=== PATIENT | female | born 1950 | race Caucasian/White ===

== ENCOUNTER 2025-05-14 09:35 | Emergency (ER) | payer MEDICARE, OTHER, SELFPAY ==
[2025-05-14 09:36] VITALS: BMI 20.1
[2025-05-14 09:41] VITALS: BP 128/63
[2025-05-14 10:00] VITALS: BP 141/66
[2025-05-14 11:02] LABS: Hematocrit 36.4 % (37.0-47.0); Hemoglobin 12.0 g/dL (12.0-16.0); Mean Corp Hgb Conc. 33.0 g/dL (33.0-37.0); Mean Corpuscular Volume 87.9 fL (81.0-99.0); Nucleated Red Blood Cells % 0 %; Platelet Count 219 10^3/uL (130-400); Red Cell Dist. Width 13.8 % (11.5-14.5)
--- NOTE | 2025-05-14 11:02 | ED.GENMED ---
History of Present Illness
General
Chief Complaint: Fall
Source: patient
Exam Limitations: none
Time Seen by Provider: 05/14/25 10:25
Nursing documentation reviewed up to this point in time: agreed with
History of Present Illness
History of Present Illness:
74-year-old female slip and fall go to the rheumatology office, struck her head no loss of conscious no headache
Similar a week or so ago she has bruising under her eyes and under her chin redness on the sclera of her left eye
No blood thinners, no chest pain no shortness of breath no dark or bloody stools no fever no nausea or vomiting
No posterior neck pain
Past History
Past History
ED Past Medical History: Other (Rheumatologic issues)
Social History
Tobacco: Non-smoker
Alcohol: None
Drug: None
Living: with family
Employment: Retired
Review of Systems
Review of Systems
All Other Systems: Not applicable
Constitutional: Denies fever or fatigue
Respiratory: Reports no symptoms
Cardiac: Reports no symptoms
ABD/GI: Reports no symptoms; Denies bloody stools or black stools
: Denies bleeding
Musculoskeletal: Denies joint pain, joint swelling or muscle stiffness
Hematologic/Lymphatic: Reports no symptoms
Psychiatric: Reports no symptoms
Phy Exam
Physical Exam
Physical Exam:
Physical Exam
General: Cooperative elderly female subacute appearing bruising under the bilateral eyes and chin
Neck: Subconjunctival hemorrhage of the left sclera no proptosis
Heart: s1/s2 regular rate and rhythm, no murmur. equal radial pulses.
Lungs: no acute respiratory distress. clear bilaterally
Abdomen: Not tender
Neuro: alert and oriented. no focal neurological deficits ambulates without
Skin: no rash
Psychiatric: Cooperative
Extremities: No signs of extremity
Course
Orders/Labs/Results
Orders:
Orders
05/14/25 09:[address] [CT Head W/o Iv Contrast] Urgent
Comment:
Reason For Exam: fall, head injury
05/14/25 10:44
Electrocardiogram (*1) Urgent
Reason for Study: Syncope
EKG- Treatment ONCE
05/14/25 10:48
Complete Blood Count/With Diff Urgent
Comprehensive Metabolic Panel Urgent
Abnormal Lab Results
05/14/25
10:48
WBC 4.5 L 10^3/uL
(4.8-10.8)
RBC 4.14 L 10^6/uL
(4.20-5.40)
Hct 36.4 L %
(37.0-47.0)
MPV 10.8 H fL
(7.4-10.4)
Absolute Lymphs (auto) 0.5 L 10^3/uL
(1.2-3.4)
Neutrophils % 82.8 H %
(42.2-75.2)
Lymphocytes % 10.3 L %
(20.5-51.1)
BUN 22 H mg/dl
(7-17)
Creatinine 0.4 L mg/dL
(0.6-1.0)
Glucose 101 H mg/dl
(70-99)
AST 61 H U/L
(14-36)
Total Protein 8.8 H g/dl
(6.3-8.2)
05/14/25 10:48
05/14/25 10:48
Vital Signs
Initial and Last Documented VS:
Initial Vital Signs
Temp Pulse Resp BP Pulse Ox
98.2 F 82 18 128/63 100
05/14/25 09:41 05/14/25 09:41 05/14/25 09:41 05/14/25 09:41 05/14/25 09:41
Last Documented Vital Signs
Temp Pulse Resp BP Pulse Ox
97.7 F 77 16 141/66 100
05/14/25 10:00 05/14/25 10:00 05/14/25 10:00 05/14/25 10:00 05/14/25 11:05
MDM/Problems Addressed
Differential Diagnosis Includes:
Slip and fall skull fracture subdural
MDM/Problems Addressed:
Fall
Chronic conditions affecting care:
Rheumatologic
Acute Exacerbation and/or Progression of Chronic Illness:
Rheumatologic
*Radiology
Radiology exam reviewed: radiology read reviewed
*Pulse Oximetry
SaO2: 100
Oxygen Mode of Delivery: Room air
Patient hypoxic: no
*EKG
Interpreted by ED Provider?: Yes
Interpretation: normal
Comparison EKG: no comparison EKG present
Heart Rate: 78
Rate: normal
Rhythm: sinus
Ischemia: no ischemia
*Critical Care Note
Total Time (30-74mins, 75-104mins- exclusive of procedures): Not Applicable
Update Note
Update Note:
Update 2 slips and falls for the past week or 2, nonfocal neurologic exam ambulate without difficulty will check EKG screening blood work
11:24 AM update labs noted
ED Attending Note
-
Portions of this chart may have been created with voice recognition software.� Occasional wrong word or��sound alike� substitutions may have occurred due to the inherent limitations of voice recognition software.
Discharge Plan
Departure
Patient Disposition: Home (Routine Discharge)
Date of Disposition: 05/14/25
Time of Disposition: 11:24
Patient with high blood pressure during this ER visit?: No
Condition: Good
Discharge Problem:
Fall
Instructions: Preventing falls in adults
Interventions
Interventions:
*Risk Screen - Suicide Last Done: 05/14/25 09:41
*General Assessment Last Done: 05/14/25 09:41
*Neglect/Abuse Screening Last Done: 05/14/25 10:39
*ED- Fall Risk Assessment Last Done: 05/14/25 10:39
*ED COVID-19 Vaccine History Last Done: 05/14/25 10:38
*ED Influenza Vaccine History Last Done: 05/14/25 10:33
ED-Musculoskeletal Assessment Last Done: 05/14/25 10:36
ED- Neurological Assessment Last Done: 05/14/25 10:35
ED-Skin Assessment Last Done: 05/14/25 10:37
Discharge Date and Time
Print Language: [id number]
[2025-05-14 11:18] LABS: ALT (SGPT) 31 U/L (0-35); AST (SGOT) 61 U/L (14-36); Albumin 4.3 g/dl (3.5-5.0); Alkaline Phosphatase 78 U/L (38-126); Blood Urea Nitrogen 22 mg/dl (7-17); Calcium 9.1 mg/dl (8.4-10.2); Carbon Dioxide 29 mmol/L (22-30); Chloride 100 mmol/L (98-107); Estimated Creatinine Clearance 68 ml/min; Glucose 101 mg/dl (70-99); Potassium 4.3 mmol/L (3.5-5.1); Sodium 136 mmol/L (135-145); Total Protein 8.8 g/dl (6.3-8.2); eGFR > 60.00
[2025-05-14 11:37] VITALS: BP 143/73
== END 2025-05-14 11:37 | disposition home or self-care (01) ==
LOC: EMR 09:35
PROVIDERS: EMERGENCY PHYSICIAN Emergency Medicine; FAMILY PHYSICIAN Family Medicine
DX: Z04.3 Encounter for examination and observation following other accident (principal); W01.10XA Fall on same level from slipping, tripping and stumbling with subsequent striking against unspecified object, initial encounter; Y92.531 Health care provider office as the place of occurrence of the external cause
CPT/HCPCS: 99284; 70450; 80053; 85025; 93005